=== PATIENT | male | born 1955 | race Caucasian/White ===

== ENCOUNTER → 2020-03-24 | Outpatient (CLI) | payer BC | END | disposition home or self-care (01) | LOC: LAB SHORT 07:20 → PLD 07:20 | DX: R22.1 Localized swelling, mass and lump, neck (principal) | CPT/HCPCS: 88173 ==

== ENCOUNTER 2020-07-08 07:49 | Day surgery (SDC) | payer BC ==
[~2020-07-08] VITALS: Ht 177.8 cm; Wt 146.9 kg
[~2020-07-08 07:49] MED LIST: ALBU90OI INH; ATACAND HCT 161 EACH PO; Aspirin325 MG PO; CIDAFLEX TABLE1 EAC1 PO; DICL75ER PO; DYAZIDE 37.5-21 EACH PO; GALZIN50 MG PO; Loratadine10 MG PO; MELATONIN5 M1 PO; NAPR500 PO; NORVASC10 MG PO; Simvastatin40 MG PO; VITAMIN D32000 UNI1 PO; Vitamin E400 UNI4 PO; [UNRECOGNIZED DRUG - CODE] SL
== END 2020-07-08 10:52 | disposition home or self-care (01) ==
LOC: ORSCSDS 07:49
PROVIDERS: Otolaryngology
PROC: 0JB40ZZ Excision of Right Neck Subcutaneous Tissue and Fascia, Open Approach (ICD-10-PCS; principal; 2020-07-08 09:00)
PROC: 0JB50ZZ Excision of Left Neck Subcutaneous Tissue and Fascia, Open Approach (ICD-10-PCS; principal; 2020-07-08 09:00)
DX: D17.0 Benign lipomatous neoplasm of skin and subcutaneous tissue of head, face and neck (principal); I10 Essential (primary) hypertension; E78.5 Hyperlipidemia, unspecified; J44.9 Chronic obstructive pulmonary disease, unspecified; G47.33 Obstructive sleep apnea (adult) (pediatric); E03.9 Hypothyroidism, unspecified; E66.01 Morbid (severe) obesity due to excess calories; Z68.42 Body mass index [BMI] 45.0-49.9, adult; Z79.899 Other long term (current) drug therapy
CPT/HCPCS: 88304; J1100; J1885; J2250; J2405; J2704; J3010; J7120